=== PATIENT | female | born 1990 | race Caucasian/White ===

== ENCOUNTER 2023-12-29 19:43 | Emergency (ER) | payer BC ==
[2023-12-29 19:49] VITALS: RESP 20; TEMP 98.6; BMI 20.7
[2023-12-29 20:54] VITALS: BP 154/104; PULSE 98
== END 2023-12-29 21:22 | disposition home or self-care (01) ==
LOC: JER 19:43
DX: I10 Essential (primary) hypertension (principal)
CPT/HCPCS: 99283-25